=== PATIENT | male | born 1970 | race Two or more races ===

== ENCOUNTER 2016-10-21 15:35 | Emergency (ER) | payer SELFPAY ==
[~2016-10-21] VITALS: Ht 188 cm; Wt 72.6 kg
[2016-10-21 16:07] VITALS: BP 120/60
--- NOTE | 2016-10-21 22:47 | Emergency Room Report ---
History of Present Illness General Chief Complaint: Alcohol Intoxication Source: Patient Present Illness HPI The patient is a 46-year-old male who presented after increased recent alcohol use. Patient stated that he denied any current complaints. The patient was brought in by EMS. He was poorly cooperative with them. The patient was noted be ambulatory without assistance by EMS. He denied any fever. Patient History Past Medical History: see triage record Reviewed Nursing Documentation: PMH: Agreed, PSxH: Agreed Nursing Documentation-PMH Past Medical History: No Stated History Review of Systems All Other Systems: limited - by poor cooperation Physical Exam Vital Signs Date Time Temp Pulse Resp B/P Pulse Ox O2 Delivery O2 Flow Rate FiO2 10/21/16 16:07 120/60 General Appearance: well appearing, no apparent distress, alert, non-toxic Head: normocephalic, atraumatic ENT: hearing grossly normal, normal voice Neck: full range of motion, supple Respiratory: lungs clear, no respiratory distress, speaking full sentences Cardiovascular #1: no edema Musculoskeletal: no calf tenderness Neurologic: normal inspection, alert, oriented x3, motor strength/tone normal, normal gait Psychiatric: normal inspection, mood/affect normal Skin: no rash Medical Decision Making Diagnostic Impression: Primary Impression: Alcohol abuse ER Course The patient presented for alcohol abuse. The patient denies any medical complaints at this time. The patient is awake alert he refused further medical care. Patient is advised to avoid excessive alcohol. Last Vital Signs Date Time Temp Pulse Resp B/P Pulse Ox O2 Delivery O2 Flow Rate FiO2 10/21/16 16:07 120/60 Status: improved Disposition: ELOPED Condition: Stable Referrals: NOT CHOSEN IPA/,REFERRING (PCP) Shahram Wood Oct 21, 2016 22:47
== END 2016-10-21 16:10 | disposition left against medical advice (07) ==
LOC: EDBD 15:35 → EMR 15:41
DX: F10.10 Alcohol abuse, uncomplicated (principal)
CPT/HCPCS: 99281